=== PATIENT | male | born 1950 | race African-American/Black ===

== ENCOUNTER 2020-06-25 06:35 | Day surgery (SDC) | payer MEDICARE ==
[2020-06-25] MEDS ORDERED: SODIUM CHLORIDE 0.9% 500 ML 500 ML IV SCH (08:00)
[2020-06-25 08:01] LABS: Basophils % (Auto) 0.5 % (0.0-1.8); Eosinophils # (Auto) 0.1 K/mm3 (0.0-0.4); Eosinophils % (Auto) 1.2 % (0.0-4.3); Hematocrit 44.7 % (35.5-45.6); Hemoglobin 15.2 gm/dl (11.8-15.2); Lymphocytes # (Auto) 2.8 K/mm3 (1.2-5.4); Lymphocytes % (Auto) 37.1 % (13.4-35.0); Mean Corpuscular HGB Conc 34 % (32-34); Mean Corpuscular Volume 97 fl (84-94); Monocytes # (Auto) 0.6 K/mm3 (0.0-0.8); Monocytes % (Auto) 7.7 % (0.0-7.3); Platelet Count 176 K/mm3 (140-440); Red Blood Count 4.63 M/mm3 (3.65-5.03); Red Cell Distribution Width 13.4 % (13.2-15.2)
[2020-06-25 08:10] LABS: BUN/Creatinine Ratio 21; Blood Urea Nitrogen 21 mg/dL (9-20); Calcium 9.2 mg/dL (8.4-10.2); Hemolysis Index 9
[2020-06-25 08:11] LABS: INR 0.92 (0.87-1.13)
[2020-06-25] MEDS ORDERED: HEPARIN/NS 5000 UNIT/500ML 1,000 ML IR ONE (08:48)
[2020-06-25] MEDS: MIDAZOLAM 2 MG/2 ML INJ ONE ×2 (09:21→10:02)
[2020-06-25] MEDS: LIDOCAINE (2%) 20 MG/1 ML VIAL 20 ML MDV INFILTRATI ONE ×2 (09:21→10:06)
[2020-06-25] MEDS: HEPARIN 10,000 UNITS/10 ML VIAL ONE ×2 (09:21→10:06)
[2020-06-25] MEDS: fentaNYL 100 MCG/2 ML INJ ONE ×2 (09:21→10:02)
[2020-06-25] MEDS: VERAPAMIL 5 MG/2 ML INJ ONE ×2 (09:21→10:06)
[2020-06-25] MEDS: NITROGLYCERIN SYRINGE 3 ML ONE ×2 (09:23→10:06)
[2020-06-25] MEDS ORDERED: ASPIRIN 81 MG TAB CHEW PO SCH (10:00)
[2020-06-25] MEDS ORDERED: SODIUM CHLORIDE 0.9% 500 ML 500 ML ONE (10:09)
--- NOTE | 2020-06-25 10:26 | Discharge Summary ---
Short Stay Discharge Plan Weight Bearing Status: Full Weight Bearing Diet: low fat, low cholesterol, low salt Wound: keep clean and dry Special Instructions: smoking cessation, no heavy lifting (3 days) Additional Instructions: DUE TO LOW BP 91/60, RECOMMEND HOLD AMLODIPINE UNTIL FOLLOW UP WITH DR WINTER. Follow up with: MANSI GALLAGHER MD [Primary Care Provider] - 7 Days LEEANNE WINTER MD [Staff Physician] - 7 Days
[2020-06-25] MEDS ORDERED: traMADol 50 MG TAB PO PRN (10:30)
[2020-06-25] MEDS ORDERED: HYDROcodone/ACETAMINOPHEN 5-325 MG TAB PO PRN (10:30)
[2020-06-25] MEDS ORDERED: SODIUM CHLORIDE 0.9% 1000 ML 1,000 ML IV SCH (10:30)
--- NOTE | 2020-06-25 12:22 | Cardiac Catherization Report ---
REASON FOR PROCEDURE: Abnormal thallium stress test. PROCEDURES: 1. Left heart catheterization. 2. Selective left and right coronary angiography. 3. Left ventricular angiography. 4. Sedation time, start 10:02, end 10:14. I was present for the entire procedure and supervised the moderate sedation protocol. DESCRIPTION OF PROCEDURE: The patient was prepped and draped in a sterile fashion after informed consent. The right radial cath site was prepped and draped after a negative Nicolás's test. The right radial artery was entered using Seldinger technique followed by placement of a 6-Syriac hydrophilic sheath. Routine radial cocktail was administered via the sheath. Selective left and right coronary angiography was performed using #3.5 left and #4 right Richard catheters. The right Richard was used for left ventricular angiography. The catheters were then removed, sheath removed, and hemostasis achieved using a TR band. The patient was returned to the postprocedure unit in stable condition. There were no complications. FINDINGS: HEMODYNAMICS: Left ventricular end-diastolic pressure was 11. Ascending air pressure was 91/60. There was no significant pressure gradient on pullback across the aortic valve. CORONARY ANGIOGRAPHY: The left main coronary artery was angiographically normal. The left anterior descending artery and its diagonal branches contained mild luminal irregularities. The circumflex artery and its obtuse marginal branches were angiographically normal. The right coronary artery was dominant, and this vessel contained mild luminal irregularities in its mid segment. There was well preserved left ventricular systolic function with ejection fraction estimated at 55%. CONCLUSION: 1. Mild luminal irregularities of the mid LAD and mid right coronary artery, no significant obstructive coronary artery disease identified. 2. Well preserved left ventricular systolic function, ejection fraction 55%. RECOMMENDATION: Risk factor modification and medical therapy. JOB# [id number] CA/NTS
[2020-06-25 17:05] VITALS: BP 113/71
== END 2020-06-25 14:45 | disposition home or self-care (01) ==
LOC: CATHLABREC 06:35
PROVIDERS: ATTEND Internal Medicine Cardiovascular Disease
DX: R94.39 Abnormal result of other cardiovascular function study (principal); E78.00 Pure hypercholesterolemia, unspecified; I10 Essential (primary) hypertension; Z79.899 Other long term (current) drug therapy; Z79.82 Long term (current) use of aspirin; Z98.890 Other specified postprocedural states
CPT/HCPCS: 36415; 80048; 85025; 85610; 93005; 93458; 99156; C1894; J1644; J2250; J3010; J7040; Q9967